=== PATIENT | female | born 1995 | race Caucasian/White ===

== ENCOUNTER 2022-09-26 17:39 | Outpatient (CLI) | payer OTHER, SELFPAY ==
[2022-09-30 05:40] LABS: FSH 3.1 mIU/mL (***); Progesterone 19.5 ng/mL (***); Prolactin 20.8 ng/mL (***)
[2022-10-03 02:32] LABS: Estradiol, Ultrasensitive 293 pg/mL
== END 2022-09-26 17:40 | disposition home or self-care (01) ==
PROVIDERS: Visit Provider Student in an Organized Health Care Education/Training Program
DX: N91.5 Oligomenorrhea, unspecified (principal)
CPT/HCPCS: 36415; 82670; 83001; 84144; 84146; 84443

== ENCOUNTER 2023-10-03 16:59 | Inpatient (IN) | payer BC, SELFPAY ==
[2023-10-03] VITALS (14 sets, daily range): BP systolic 109–144; BP diastolic 61–87; PULSE 84–99; RESP 16; TEMP 36.3–36.6; BMI 30.4
--- NOTE | 2023-10-03 17:36 | LDADM ---
This patient, Marbella Palmer, was admitted to Labor/Delivery/Recovery 104 on 10/03/23 at 16:59. Plans for labor, pain management and were discussed with patient. Patient/family oriented to hospital policies and general routines including ID bracelet, bed and alarms, visiting hours, pain management, procedures, bathroom and other care routines, personal items, smoking policy, room service/diet and guest tray routines, security routines, and visiting hours. Patient/Family are encouraged to report perceived risks to care and to ask questions if they do not understand what they are told or what they should do. See OBIX for further documentation.
[2023-10-03 17:38] LABS: Basophils Percent Auto 0.1 % (0.2-1.2); Eosinophils Absolute Auto 0.1 K/mm3 (0-0.3); Eosinophils Percent Auto 0.9 % (0-4.4); Hematocrit 36.4 % (37.0-47.0); Hemoglobin 12.1 g/dL (12.0-15.0); Immature Granulocyte Absolute 0.05 K/mm3 (0.00-0.031); Immature Granulocyte Percent A 0.6 % (0-0.5); Lymphocytes Percent Auto 15.3 % (18.3-44.2); Mean Corpuscular HGB Conc 33.2 g/dl (32-36); Mean Corpuscular Hemoglobin 31.1 pg (26-34); Mean Corpuscular Volume 93.6 fl (80-100); Mean Platelet Volume 10.9 fl (7.4-10.4); Monocytes Absolute Auto 0.8 K/mm3 (0.1-0.6); Neutrophils Absolute Auto 6.3 K/mm3 (1.3-6.7); Neutrophils Percent Auto 74.1 % (45.5-73.1); Platelet Count Result 219 k/mm3 (150-375); Red Blood Count 3.89 M/mm3 (4.2-5.4); Red Cell Distribution Width 14.1 % (11.5-14.5); White Blood Count 8.5 K/mm3 (4.5-10.0)
[2023-10-03] MEDS: DINOPROSTONE 10 MG VAG INSERT VAGINAL (17:53)
--- NOTE | 2023-10-03 19:34 | WPDANESEPP ---
Anes - Eval Pre Procedure Procedure: labor epidural Date/Time: 10/03/23 19:34 Surgeon: wade Preop Diagnosis: pain during labor Pre Op Diagnosis: IOL Patient Data Age: 28 Gender: F Height: 1.55 m Weight: 73 kg Last Vital Signs Temp 36.3 C L 10/03/23 17:13 Pulse 98 10/03/23 19:31 Resp 16 10/03/23 17:13 BP 122/69 10/03/23 19:31 O2 Del Method Room Air 10/03/23 17:34 Allergies Allergy/AdvReac Type Severity Reaction Status Date / Time No Known Allergies Allergy Verified 09/27/23 15:44 Home Medications Medication Instructions Recorded Confirmed Type aspirin 81 mg tablet,delayed 81 mg PO DAILY 05/31/23 10/03/23 History release (Adult Low Dose Aspirin) vits no.126-ferrous fum 1 tablet PO DAILY 05/31/23 10/03/23 History 28 mg iron-folic acid 800 mcg tablet (Classic ) ferrous sulfate 324 mg (65 mg 324 mg PO DAILY 07/26/23 10/03/23 History iron) tablet,delayed release Laboratory Tests 10/03/23 17:10 WBC 8.5 K/mm3 (4.5-10.0) RBC 3.89 L M/mm3 (4.2-5.4) Hgb 12.1 g/dL (12.0-15.0) Hct 36.4 L % (37.0-47.0) MCV 93.6 fl (80-100) MCH 31.1 pg (26-34) MCHC 33.2 g/dl (32-36) RDW 14.1 % (11.5-14.5) Plt Count 219 k/mm3 (150-375) MPV 10.9 H fl (7.4-10.4) Immature Gran % (Auto) 0.6 H % (0-0.5) Neut % (Auto) 74.1 H % (45.5-73.1) Lymph % (Auto) 15.3 L % (18.3-44.2) [place] % (Auto) 9.0 H % (2.6-8.5) Eos % (Auto) 0.9 % (0-4.4) Baso % (Auto) 0.1 L % (0.2-1.2) Lymph # (Auto) 1.30 K/mm3 (0.9-3.2) [place] # (Auto) 0.8 H K/mm3 (0.1-0.6) Eos # (Auto) 0.1 K/mm3 (0-0.3) Baso # (Auto) 0.0 K/mm3 (0.0-0.1) Abs Immat Gran (auto) 0.05 H K/mm3 (0.00-0.031) Absolute Neuts (auto) 6.3 K/mm3 (1.3-6.7) Absolute Nucleated RBC 0.0 K/mm3 (0.0-0.012) Nucleated RBC % 0.0 % (0.0-0.2) % Immature Plt Fraction 8.0 % (0.9-11.2) RPR Pending Blood Type O Positive Antibody Screen Negative Patient hx anesthesia problems: none Family hx anesthesia problems: none Results Review: All pre-operative results and documents have been reviewed as part of the pre-operative evaluation. [facility] Past Medical History Medical History (Updated 10/03/23 @ 19:35 by Kristin Rowe CRNA) IUP (intrauterine ), incidental Suppression of menses Surgical History Surgical History S/P lumpectomy, left breast benign Family History Family History Other Patient denies significant medical history Social History Social History Smoking status: Never smoker Alcohol intake: current Alcohol use details: occasional Substance use: never Do You Feel Safe in your Home?: Yes Lack of Transportation: No Lack of Food: Never True Current Housing: I Have Housing Concerned About Future Housing: No Difficulty Paying Gas/Electric Bills: No Difficulty Paying for Meds: No Currently Unemployed: No Education: Master's Degree or Higher Difficulty w/ Childcare or Family Care: No Living arrangements: other Additional living arrangements comments: Occupation/Education: occupation Gender identity (if verbalized by the patient): Female Sexual Orientation (if Verbalized by the Patient): Straight or Heterosexual Spiritual care concerns: No Exam Day of Procedure 10/03/23 19:34
[2023-10-04] VITALS (178 sets, daily range): BP systolic 102–142; BP diastolic 52–95; PULSE 76–106; TEMP 36.2–38.1; O2SAT 95–100
[2023-10-04] MEDS: LACTATED RINGERS 1,000 ML 999 ML IV CONT ×4 (03:28→18:11)
[2023-10-04] MEDS: OXYTOCIN 30 UNITS/NS 500 ML 30 UNITS/500 ML BAG IV CONT (07:05)
--- NOTE | 2023-10-04 07:34 | WPDHPUPDATE1 ---
History and Physical Update Update Date/Time: 10/04/23 07:34 28 yo G1 at 40w5d who presents for IOL History and Physical has been reviewed, including an updated exam of the patient. There are NO changes in the patient's condition. Risks, benefits, and alternatives have been discussed and questions answered. Patient agrees to proceed with procedure. A/P: admit to L&D routine admission orders labs reviewed Rh+ GBS neg plan for cervidil IOL continuous EFM
[2023-10-04 10:58] LABS: Rapid Plasma Reagin Non-Reactive (NonReactive)
--- NOTE | 2023-10-04 11:45 | PM.OBPNLAB ---
Pain Control Date/time seen: 10/04/23 11:45 Pain control: tolerating well Pelvic Exam Dilation (cm): 6 Effacement (%): 80 station: 0 Amniotic membrane status: Intact Comments: AROM for copious amounts of clear fluid Contractions Monitor mode: External Contraction pattern: Regular Status status: Category l Assessment and Plan Assessment: induction ongoing Plan: continuous present management Comments: AROM for clear fluid IUPC entered
[2023-10-04] MEDS: diphenhydrAMINE HCl INJ 50 MG/ML VIAL 25 MG IV PUSH (20:04)
[2023-10-04] MEDS: ACETAMINOPHEN 500 MG TABLET 1000 MG PO (21:03)
--- NOTE | 2023-10-04 23:00 | PM.IMHP ---
H&P: HPI History of Present Illness Date/Time: 10/04/23 23:00 Chief Complaint: Intrauterine at term Narrative: 28 yo G1 at 40w5d who presented for IOL Review of Systems Cardiovascular: Cardiovascular: Denies chest pain, Denies leg edema, Denies palpitations, Denies dyspnea and Denies dyspnea on exertion Respiratory: Respiratory: Denies cough, Denies dyspnea and Denies dyspnea on exertion Gastrointestinal: Gastrointestinal: Denies abdominal pain, Denies constipation, Denies diarrhea, Denies nausea and Denies vomiting Genitourinary: Genitourinary: Denies hematuria, Denies urinary frequency, Denies dysuria, Denies pelvic pain, Denies urinary incontinence and Denies vaginal discharge Neurologic: Reports system reviewed and no additional complaints, except as documented Psychiatric: Psychiatric: Reports no additional psychiatric complaints Endocrine: Endocrine: Denies palpitations PMFSH Past Medical History Medical History (Updated 10/03/23 @ 19:35 by Kristin Rowe CRNA) IUP (intrauterine ), incidental Suppression of menses Surgical History Surgical History S/P lumpectomy, left breast benign Family History Family History Other Patient denies significant medical history Social History Social History Smoking status: Never smoker Alcohol intake: current Alcohol use details: occasional Substance use: never Do You Feel Safe in your Home?: Yes Lack of Transportation: No Lack of Food: Never True Current Housing: I Have Housing Concerned About Future Housing: No Difficulty Paying Gas/Electric Bills: No Difficulty Paying for Meds: No Currently Unemployed: No Education: Master's Degree or Higher Difficulty w/ Childcare or Family Care: No Living arrangements: other Additional living arrangements comments: Occupation/Education: occupation Gender identity (if verbalized by the patient): Female Sexual Orientation (if Verbalized by the Patient): Straight or Heterosexual Spiritual care concerns: No Meds Home Medications and Allergies Home Medications Medication Instructions Recorded Confirmed Type aspirin 81 mg tablet,delayed 81 mg PO DAILY 05/31/23 10/03/23 History release (Adult Low Dose Aspirin) vits no.126-ferrous fum 1 tablet PO DAILY 05/31/23 10/03/23 History 28 mg iron-folic acid 800 mcg tablet (Classic ) ferrous sulfate 324 mg (65 mg 324 mg PO DAILY 07/26/23 10/03/23 History iron) tablet,delayed release Allergies Allergy/AdvReac Type Severity Reaction Status Date / Time No Known Allergies Allergy Verified 09/27/23 15:44 Vital Signs Vital Signs - 24 hr 10/03/23 23:01 10/03/23 23:37 10/04/23 02:55 Temperature Pulse Rate 84 91 88 Blood Pressure 109/61 123/82 124/71 Pulse Oximetry 10/04/23 02:54 10/03/23 23:14 10/04/23 06:20 Temperature 97.7 F 97.8 F 97.1 F L Pulse Rate Blood Pressure Pulse Oximetry 10/04/23 06:46 10/04/23 07:31 10/04/23 08:01 Temperature Pulse Rate 83 84 79 Blood Pressure 140/90 130/89 137/83 Pulse Oximetry 10/04/23 09:01 10/04/23 09:31 10/04/23 09:37 Temperature 98 F Pulse Rate 87 83 Blood Pressure 125/84 122/82 Pulse Oximetry 10/04/23 10:01 10/04/23 10:31 10/04/23 11:01 Temperature Pulse Rate 86 95 88 Blood Pressure 129/90 126/69 122/79 Pulse Oximetry 10/04/23 11:31 10/04/23 12:01 10/04/23 11:39 Temperature 98 F Pulse Rate 88 90 Blood Pressure 122/78 118/79 Pulse Oximetry 10/04/23 12:31 10/04/23 13:01 10/04/23 13:31 Temperature Pulse Rate 81 91 90 Blood Pressure 137/88 142/75 H 119/79 Pulse Oximetry 10/04/23 13:41 10/04/23 13:46 10/04/23 13:51 Temperature Pulse Rate 87 Blood Pressure 128/85 Pulse Oxim
--- NOTE | 2023-10-04 23:03 | PM.OBPNLAB ---
Pain Control Date/time seen: 10/04/23 23:03 Pain control: epidural Pelvic Exam Dilation (cm): 7 Effacement (%): 80 station: 0 Amniotic membrane status: Intact Contractions Monitor mode: Internal Contraction pattern: Regular Contraction intensity: Mild Status status: Category l Assessment and Plan Assessment: induction ongoing Plan: Comments: Pt cervix remains 6-7 cm dilated. Pt developed a fever. She reports feeling warm, tired, and sick . discussed plan of care with patient and partner. Pt has had IUPC in since AROM around 12:00. cervix has remained largely unchanged. Discussed protracted labor. Given no cervical change after 6 hours despite inadequate contractions and now the development of maternal fever, I would recommend proceeding with primary . Risks, benefits, and alternatives were discussed. patient and partner agree to proceed with primary . All questions answered
[2023-10-04] MEDS: FAMOTIDINE 20 MG/2 ML VIAL IV PUSH (23:15)
[2023-10-04] MEDS: ONDANSETRON INJ 4 MG/2 ML VIAL IV PUSH (23:15)
[2023-10-04] MEDS: ceFAZolin 2 GM/D5W 50 ML 2 GM/50 ML BAG IVPB (23:23)
--- NOTE | 2023-10-04 23:35 | P.PNAN_ITS ---
Anes - Eval Final PreProcedure Day of Procedure 10/04/23 23:35 Patient weight: obese Heart: regular rate and rhythm Lungs: clear to auscultation and normal air movement Airway: Mallampati scale class II Neurological: alert and oriented Last oral intake: >/= 8 hours ASA classification: II Emergent: no Anesthetic plan: proceed Anesthesia type and monitoring: regional epidural and standard monitoring Other findings: to C/S Results Review: All pre-operative results and documents have been reviewed as part of the pre- operative evaluation. Informed Consent: The patient's anesthetic plan and its attendant risks and benefits were discussed with the patient/family/POA. Questions were solicited and answers provided to the satisfaction of the patient/family/POA.
[2023-10-04] MEDS: AZITHROMYCIN 500 MG/NS 250 ML 500 MG/250 ML BAG 250 MG IVPB (23:36)
[2023-10-05] VITALS (43 sets, daily range): BP systolic 99–137; BP diastolic 57–92; PULSE 88–124; RESP 14–18; TEMP 36.8–37.3; O2SAT 95–100
--- NOTE | 2023-10-05 00:17 | P.PCNOB_ITS ---
OB - Delivery Note Procedure Delivery date: 10/05/23 Pre-op diagnosis: Arrest of Dilation and Chorioamniontis Post-op Diagnosis: Same Induction method: Per Cervidil Protocol Delivery augmentation: Rupture of Membranes and Pitocin Delivery monitor: External FHT and Internal Uterine Prior to decision for section, ACOG/SM labor guidelines were considered and discussed with the patient and staff. Decision made to proceed with the section.: Yes Procedure Performed: Primary Primary branch: low cervical, transverse Surgeon: Anthony Crabtree MD Anesthesia type: Epidural Description of Procedure/Findings: The patient was taken to the operating room where epidural anesthesia was found to be adequate. She was then prepped and draped in the usual sterile fashion in the dorsal supine position with a leftward tilt. A Pfannenstiel skin incision was then made with the scalpel and carried through to the underlying layer of fascia. The fascia was then incised in the midline and the incision extended laterally with the Gold scissors. The superior aspect of the fascia was then grasped with the Nica clamps, elevated, and the underlying rectus muscles dissected off bluntly and sharply. Attention was then turned to the inferior aspect of this incision which, in a similar fashion, was grasped, tented up with the Nica clamps, and the rectus muscles dissected off both bluntly and sharply. The rectus muscles were then in the midline, and the peritoneum identified, tented up, and entered sharply with the Metzenbaum scissors. The peritoneal incision was then extended superiorly and inferiorly with good visualization of the bladder. The bladder blade was then reinserted and the lower uterine segment incised in a low, transverse fashion with the scalpel. The uterine incision was then extended bluntly . The bladder blade was removed and the infant?s head delivered atraumatically. The remainder of the infant was delivered atraumatically. The cord was clamped and cut. The was handed off to the waiting pediatricians (staff). Cord gasses were sent. The placenta was then removed manually, the uterus exteriorized, and cleared of all clots and debris. The uterine incision was repaired with 0 monocryl in a running fashion. A second layer of suture with 0 monocryl was used as an imbricating layer. The uterus was returned to the abdomen. The uterus was then reinspected to ensure hemostasis as were all subfascial tissues. The peritoneum was re-approximated with 3-0 vicryl in a running fashion. The fascia was reapproximated with 0 vicryl in a running fashion. The subcutaneous tissue was copiously irrigated with saline. The skin was closed with 4-0 vicryl. The patient tolerated the procedure well. Sponge, lap and needle counts were correct times three. The patient was taken to the recovery room in stable condition. Specimen: Yes (placenta) Estimated Blood Loss: 705 Drains: No Packing: No Pathology: Yes (placenta) Complications: No immediate complications Condition: Stable Disposition: [facility] [place] Baby Date of : 10/05/23 Time of : 23:36 Weeks of gestation at delivery: 40 gender: Female Weight (pounds): 8 Weight (ounces): 8 presentation: vertex position: Right Occiput Posterior Placenta delivery description: Manual Removal Cord Vessel Description: 3 Vessels score one minute: 8 score five minutes: 9 AMG Delivery Billing Delivery Delivery: Delivery Charge
[2023-10-05] MEDS: OXYTOCIN 30 UNITS/NS 500 ML 30 UNITS/500 ML BAG 125 UNITS IV CONT (02:15)
--- NOTE | 2023-10-05 02:48 | OBPPTRN ---
Patient transferred to post room #288 via stretcher. Support person present. Oriented to unit, room, information board, rooming in, admission packet and security measures. Patient verbalizes understanding.
[2023-10-05] MEDS: KETOROLAC 15 MG/ML VIAL (*BKC) IV PUSH ×4 (04:30→22:51)
[2023-10-05] MEDS: ACETAMINOPHEN 325 MG TABLET 650 MG PO ×4 (04:30→22:46)
[2023-10-05] MEDS: KCL 20 MEQ/D5/0.45% SOD CHL 1,000 ML 125 ML IV CONT (06:01)
--- NOTE | 2023-10-05 08:21 | PM.OBPNVD ---
OB - PN: Subj Subjective Date/time seen: 10/05/23 08:21 Patient comments: no complaints, pain well controlled, tolerating diet and flatus present OB - PN: Obj Data Labs 10/03/23 17:10 Labs: Laboratory Results - last 24 hr 10/03/23 17:10 RPR Non-reactive OB - PN A/P Plan day: 1 Plan: routine care Comments: patient doing well H/H stable afebrile, VSS incision C/D/I steele removed, voiding spontaneously continue routine post op care Time Spent With Patient Time: Total time spent is greater than 50% in coordination of care (as documented) at patient's floor/unit and/or counseling patient: Time with patient: less than 15 minutes Review of Systems Constitutional: Constitutional: Reports no additional constitutional complaints Cardiovascular: Cardiovascular: Reports no additional cardiovascular complaints Respiratory: Respiratory: Reports no additional respiratory complaints Gastrointestinal: Gastrointestinal: Reports no additional gastrointestinal complaints Genitourinary: Genitourinary: Reports no additional female genitourinary complaints Exam Const: General: comfortable and no acute distress Resp: Effort & Inspection: normal respiratory effort Auscultation: clear to auscultation bilaterally Cardio: Rate: regular rate GI: GI Palp: Yes Soft to palpation, Yes Tenderness to palpation present (GI) (around incision ) and No Guarding due to palpation present (GI) Auscultation: normal bowel sounds Other: incision C/D/I, covered with Dermabond Psych: Appearance: grossly normal Mental Status: mental status grossly normal Affect: normal affect
[2023-10-05] MEDS: DOCUSATE SODIUM 100 MG CAPSULE PO ×2 (10:14→16:59)
[2023-10-05] MEDS: MULTIVIT/MIN/PREN/FOL AC/IRON TABLET 1 TAB PO (10:14)
[2023-10-05] MEDS: SIMETHICONE 80 MG TAB.CHEW PO ×2 (10:15→16:59)
--- NOTE | 2023-10-05 14:08 | WPDANLDPN2 ---
Anes-Prog Note L&D Date/Time: 10/05/23 14:08 Comfortable throughout: labor and delivery Neuraxial method: epidural Epidural/Spinal procedure site: clean & non-tender Neuro status: Neuro function grossly intact. Cardiovascular status: normal Respiratory status: normal Airway patency: baseline Mental status: baseline Post-Op hydration status: normal Vital Signs: Last Vital Signs Temp 98.3 F 10/05/23 12:19 Pulse 97 10/05/23 12:19 Resp 16 10/05/23 12:19 BP 99/57 L 10/05/23 12:19 Pulse Ox 98 10/05/23 12:19 O2 Del Method Room Air 10/05/23 00:30 Pain score (VAS): 0/10 I/O: Intake & Output 10/04/23 10/05/23 10/05/23 23:59 07:59 15:59 Intake Total 200 Output Total 500 350 Balance -500 -150 Post-procedural complaints: none Patient feedback: Patient satisfied with anesthetic care.
--- NOTE | 2023-10-05 14:08 | WPDANLDNPN2 ---
Anes-Prog Note L&D-Neuraxial Date/Time: 10/05/23 14:08 Neuraxial medications: epidural PF morphine Opiod-related complaints: none Patient feedback: Patient satisfied with post-operative pain management.
--- NOTE | 2023-10-05 15:02 | PC.NURSE ---
[id number] Introductions were made, then consulted with patient to assess needs related to . Discussed with mother her?plans to feed?her infant, the?experience so far, and mother states infant hasn't eaten since 0810. RN demonstrated teaching of waking and stimulating to breastfeed. Infant began to demonstrate feeding cues and mother mentioned being patient and given time to latch. Resources provided for inpatient and outpatient services with the name written on the communication board. Mother is instructed to call if doesn't latch in the next 30 minutes as infant is demonstrating early feeding signs. We reviewed that there is to be no pain with and what to look for when detaches from the breast. Mother voiced understanding of information, declines assistance with latching infant, and will call if there is a request for assistance. Reported to the Primary RN.
[2023-10-06] MEDS: ACETAMINOPHEN 325 MG TABLET 650 MG PO ×2 (05:31→12:02)
[2023-10-06] MEDS: IBUPROFEN 600 MG TABLET PO ×2 (05:31→12:02)
[2023-10-06 06:02] LABS: Basophils Percent Auto 0.3 % (0.2-1.2); Eosinophils Absolute Auto 0.2 K/mm3 (0-0.3); Eosinophils Percent Auto 1.4 % (0-4.4); Hematocrit 24.9 % (37.0-47.0); Hemoglobin 7.8 g/dL (12.0-15.0); Immature Granulocyte Absolute 0.08 K/mm3 (0.00-0.031); Immature Granulocyte Percent A 0.6 % (0-0.5); Lymphocytes Absolute Auto 1.83 K/mm3 (0.9-3.2); Lymphocytes Percent Auto 13.7 % (18.3-44.2); Mean Corpuscular HGB Conc 31.3 g/dl (32-36); Mean Corpuscular Hemoglobin 30.5 pg (26-34); Mean Corpuscular Volume 97.3 fl (80-100); Mean Platelet Volume 10.4 fl (7.4-10.4); Monocytes Absolute Auto 0.8 K/mm3 (0.1-0.6); Monocytes Percent Auto 5.9 % (2.6-8.5); Neutrophils Absolute Auto 10.4 K/mm3 (1.3-6.7); Neutrophils Percent Auto 78.1 % (45.5-73.1); Platelet Count Result 206 k/mm3 (150-375); Red Blood Count 2.56 M/mm3 (4.2-5.4); Red Cell Distribution Width 14.7 % (11.5-14.5); White Blood Count 13.3 K/mm3 (4.5-10.0)
[2023-10-06 07:35] VITALS: BP 116/71; PULSE 86; RESP 16; TEMP 36.6; O2SAT 98
--- NOTE | 2023-10-06 08:08 | PM.OBDSVD ---
DS: Admitting Diagnosis Discharge Date 10/06/23 Admitting Diagnosis intrauterine at term DS: Discharge Diagnosis Discharge Diagnosis (1) delivery delivered: Code(s): O82 - Encounter for delivery without indication Status: Acute (2) Arrest of dilation, delivered, current hospitalization: Code(s): O62.1 - Secondary uterine inertia Status: Acute OB - DS: Summary OB Procedures : None OB Procedures Intrapartum: OB Procedures: : None Peripartum Data Delivery Method: Section Procedures: Procedures Operation Date: 10/04/23 23:00 Actual Procedure Side Surgeon p Section Not Applicable Anthony Crabtree MD complications: none Status at Discharge Functional status at discharge: independent ambulation Overall status at discharge: patient is progressing back to baseline Time Spent with Patient Time attestation: Total time spent providing and/or coordinating discharge services: Time spent: Less than 30 minutes Exam Const: General: comfortable and no acute distress Resp: Effort & Inspection: normal respiratory effort Auscultation: clear to auscultation bilaterally Cardio: Rate: regular rate GI: Inspection: non-distended GI Palp: Yes Soft to palpation, No Firmness to palpation present (GI), Yes Tenderness to palpation present (GI) (mild tenderness over incision ) and No Guarding due to palpation present (GI) Auscultation: normal bowel sounds Psych: Appearance: grossly normal Mental Status: mental status grossly normal DS: Data Data Completed and Pending Pending studies at discharge: Pending at discharge 10/05/23 09:31 Surgical [PTH] Routine Labs on day of discharge: Labs from last 24 hours 10/06/23 05:57 WBC 13.3 H RBC 2.56 L Hgb 7.8 L D Hct 24.9 L MCV 97.3 MCH 30.5 MCHC 31.3 L RDW 14.7 H Plt Count 206 MPV 10.4 Immature Gran % (Auto) 0.6 H Neut % (Auto) 78.1 H Lymph % (Auto) 13.7 L [place] % (Auto) 5.9 Eos % (Auto) 1.4 Baso % (Auto) 0.3 Lymph # (Auto) 1.83 [place] # (Auto) 0.8 H Eos # (Auto) 0.2 Baso # (Auto) 0.0 Abs Immat Gran (auto) 0.08 H Absolute Neuts (auto) 10.4 H Absolute Nucleated RBC 0.0 Nucleated RBC % 0.0 Discharge Plan Discharge Discharging Clinician: Anthony Crabtree Patient Disposition: Home, Self-Care Activity: as tolerated and pelvic rest Diet: regular Patient Instructions: Antibiotic Form, (DC) Stand Alone Forms: General Discharge Information Follow-up/Referrals: Anthony Crabtree MD [Physician] - Discharge Medications: New oxycodone-acetaminophen 5-325 mg tablet 1 tablet PO Q6H PRN (Reason: pain) Qty: 28 0RF ibuprofen 600 mg tablet 600 mg PO Q6H PRN (Reason: pain) Qty: 30 0RF Continued Classic 28 mg iron- 800 mcg tablet 1 tablet PO DAILY ferrous sulfate 324 mg (65 mg iron) tablet,delayed release (DR/EC) 324 mg PO DAILY Discontinued aspirin [Adult Low Dose Aspirin] 81 mg tablet,delayed release (DR/EC) 81 mg PO DAILY Date of admission: 10/03/23 16:59 Primary Care Provider: UNKNOWN,DOCTOR Admitting Provider: Anthony Crabtree Attending physician on admission: Anthony Crabtree Condition: Stable
[2023-10-06] MEDS: SIMETHICONE 80 MG TAB.CHEW PO ×2 (09:50→16:49)
[2023-10-06] MEDS: MULTIVIT/MIN/PREN/FOL AC/IRON TABLET 1 TAB PO (09:50)
[2023-10-06] MEDS: POLYSACCHARIDE IRON COMPLEX 150 MG CAPSULE PO ×2 (09:50→16:49)
[2023-10-06] MEDS: DOCUSATE SODIUM 100 MG CAPSULE PO ×2 (09:50→16:49)
--- NOTE | 2023-10-06 13:18 | PC.NURSE ---
[id number] Mother is demonstrating that she is able to independently latch with appropriate positioning and alignment. She denies any nipple discomfort and is responsively . Infant is currently meeting outcomes for weight, output, jaundice, blood sugar and feeding frequencies of 8-12 times in 24 hours. Mother led the conversation with her experience so far. Mother is feeding appropriately for growth of infant and understands stimulating to eat if needed. Infant has had appropriate feedings in the last 24 hours meets the outcomes for weight, output, blood sugar and jaundice at this time. Mother states she is confident to continue effectively her at home, when to call for assistance, denies any additional assistance or education at this time. Reinforced understanding of milk production, transition of milk, signs of adequate intake, transition of stool, prevention/relief of engorgement, plugged ducts, mastitis, responsive watching for feeding cues, the different methods of stimulating to breastfeed 1-3 hours after the start of the last feeding, community resources, medication information reviewed per [facility] and when to call a provider using the resource of the mom and baby guide. Mother voiced understanding of the education shared. Reported to the Primary RN.
--- NOTE | 2023-10-06 17:35 | PC.NURSE ---
Patient viewed the discharge video Mother & Baby Care, The First Two Weeks . Patient was given the opportunity and encouraged to ask questions. Patient verbalized understanding of information shared and has been given the mother/baby guide for home reference.
--- NOTE | 2023-10-06 19:35 | PC.NURSE ---
Discharge instructions given to patient and at this time. Questions answered. Patient escorted to private vehicle in [address] with and .
[2023-10-07 09:29] VITALS: BP 134/81; PULSE 78; RESP 18; TEMP 37.3; O2SAT 100
== END 2023-10-06 19:47 | disposition home or self-care (01) | DRG 788 ==
LOC: ANHLDR 17:03 → ANHOB2 10-05 02:57
PROVIDERS: Admitting Provider Student in an Organized Health Care Education/Training Program; Visit Provider Student in an Organized Health Care Education/Training Program
PROC: 10907ZC Drainage of Amniotic Fluid, Therapeutic from Products of Conception, Via Natural or Artificial Opening (ICD-10-PCS; CPT 59514; principal; 2023-10-04 23:00)
DX: O41.1230 Chorioamnionitis, third trimester, not applicable or unspecified (principal); Z37.0 Single live birth; Z3A.40 40 weeks gestation of pregnancy; O62.1 Secondary uterine inertia
CPT/HCPCS: 36415; 85025; 85055; 86592; 86850; 86900; 86901; 88307; A9270; J0456; J0690; J1200; J1885; J2175; J2274; J2371; J2405; J2590; J2795; J3480; J7120